=== PATIENT | male | born 1950 | race Caucasian/White ===

== ENCOUNTER 2021-04-05 12:47 | Outpatient (CLI) | payer MEDICARE ==
[2021-04-05 15:11] LABS: #Basophils 0.1 10x3/uL (0.0-0.2); #Monocytes 0.8 10x3/uL (0.0-1.1); #Neutrophils 7.2 10x3/uL (1.5-8.4); %Basophils 0.5 % (0.0-2.0); %Lymphocytes 12.1 % (18.0-47.0); %Monocytes 8.3 % (0.0-10.0); %Neutrophils 78.8 % (40.0-75.0); Hemoglobin 15.8 g/dL (13.5-17.5); Mean Corpuscular HGB CONC 33.2 g/dL (32.0-36.0); Mean Corpuscular Hemoglobin 29.8 pg (27.0-33.0); Mean Corpuscular Volume 89.6 fl (81.2-95.1); Mean Platelet Volume 11.4 fl (7.4-10.4); Platelet Count 245 10x3/uL (150-450); RBC Distribution Width 13.7 % (11.5-14.5); Red Blood Cell (RBC) Count 5.31 10x6/uL (4.32-5.72); White Blood Cell (WBC) Count 9.2 10x3/uL (3.5-10.5)
[2021-04-05 15:35] LABS: ALT (SGPT) 14 U/L (8-55); AST (SGOT) 12 U/L (5-34); Albumin 4.5 g/dL (3.4-4.8); Alkaline Phosphatase 50 U/L (40-110); Anion Gap 16 mmol/L (10-20); BUN (Urea Nitrogen) 29 mg/dL (8.4-25.7); Bilirubin, Direct 0.2 mg/dL (0.1-0.3); Bilirubin, Total 0.4 mg/dL (0.2-1.2); Calc. Creatinine Clearance 0 mL/min (70-130); Calcium 9.6 mg/dL (7.8-10.44); Carbon Dioxide 25 mmol/L (23-31); Chloride 105 mmol/L (98-107); Globulin 2.7 g/dL (2.4-3.5); Glucose 290 mg/dL (80-115); Potassium 5.1 mmol/L (3.5-5.1); Protein, Total 7.2 g/dL (5.8-8.1); Sodium 141 mmol/L (136-145)
[2021-04-05 22:22] LABS: SARS-CoV-2 PCR by NAA Not Detected (NotDetected)
== END 2021-04-05 12:48 | disposition home or self-care (01) ==
LOC: LABBT 12:47
PROVIDERS: ATTEND Surgery
DX: Z01.812 Encounter for preprocedural laboratory examination (principal); Z20.822 Contact with and (suspected) exposure to COVID-19
CPT/HCPCS: 80053; 80076; 85025; U0003; U0005

== ENCOUNTER 2021-04-06 10:05 | Day surgery (SDC) | payer MEDICARE ==
[2021-04-05 14:04] VITALS: BMI 25.9
[2021-04-06] MEDS ORDERED: Lidocaine 1% w/Epinephrine 1:100K 20 ML VIAL ONE (11:44)
[2021-04-06] MEDS ORDERED: Bupivacaine 0.25% 10 ML VIAL ONE (11:44)
[2021-04-06] MEDS ORDERED: cefOXitin Sodium/Dextrose 2 GM/50 ML BAG ONE (11:47)
[2021-04-06] MEDS ORDERED: Fentanyl 100 MCG/2 ML VIAL ONE (11:47)
[2021-04-06] MEDS ORDERED: Glycopyrrolate 0.2 MG/ML 5 ML SYRINGE ONE (12:14)
[2021-04-06] MEDS ORDERED: PROPOFOL 200 MG/20 ML VIAL ONE (12:14)
[2021-04-06] MEDS ORDERED: Ondansetron PF 4 MG/2 ML Vial ONE (12:14)
[2021-04-06] MEDS ORDERED: Lidocaine 1% PF 5 ML VIAL ONE (12:14)
[2021-04-06] MEDS ORDERED: Labetalol HCl 100 MG/20 ML VIAL ONE (12:14)
[2021-04-06] MEDS ORDERED: Rocuronium Bromide 10 MG/ML (10ML VIAL) ONE (12:14)
[2021-04-06] MEDS ORDERED: hydrALAZINE 20 MG/ML VIAL ONE (12:51)
[2021-04-06] MEDS ORDERED: Phenylephrine 10 MG/ML VIAL ONE ×2 (13:20→14:05)
[2021-04-06] MEDS ORDERED: Ketorolac Tromethamine 30 MG/ML VIAL ONE (13:23)
[2021-04-06] MEDS ORDERED: Calcium Chloride 1 GM/10 ML Abboject SYRINGE ONE (13:24)
[2021-04-06] MEDS ORDERED: ePHEDrine Sulfate 50 MG/10 ML VIAL ONE (13:26)
[2021-04-06] MEDS ORDERED: Nitroglycerin 2% Ointment 1 INCH/1 GM Packet ONE (13:27)
[2021-04-06] MEDS ORDERED: EPINEPHrine 1 MG/10 ML Abboject SYRINGE ONE ×2 (13:28→13:44)
[2021-04-06] MEDS ORDERED: Sodium Chloride 0.9% 100 ML ONE (13:33)
[2021-04-06] MEDS ORDERED: Succinylcholine 200 MG/10 ml SYRINGE FS ONE (13:33)
[2021-04-06] MEDS ORDERED: Norepinephrine 4 MG/4 ML VIAL ONE (13:34)
[2021-04-06] MEDS ORDERED: Ipratropium Bromide 2.5 ml Neb ONE (13:35)
[2021-04-06] MEDS ORDERED: Sodium Chloride 0.9% 10 ML ONE ×4 (13:36→13:54)
[2021-04-06] MEDS ORDERED: Midazolam HCl 2 mg/2 ml Vial ONE (13:39)
[2021-04-06] MEDS ORDERED: Sodium Bicarb 50 MEQ/50 ML Abboject 8.4% SYRINGE ONE (13:44)
[2021-04-06] MEDS ORDERED: EPINEPHrine 1 MG/ML AMP ONE (14:05)
[2021-04-06 14:06] LABS: Analyzer IN Cardio OR
[2021-04-06 14:07] LABS: Actual Bicarbonate (HCO3v) 21 mEq/L (22-28); Base Excess -6.5 mEq/L (-2.0 to +3.0); Calcium, Ionized (venous) 1.97 mmol/L (1.16-1.32); Chloride (VBG) 105 mmol/L (98-106); Hemoglobin (Hb) 13.8 g/dL (12.6-17.4); Potassium (VBG) 3.68 mmol/L (3.70-5.30); Sodium 137.3 mmol/L (133-146); pH (venous) 7.23 (7.32-7.43)
[2021-04-06 14:25] LABS: Actual Bicarbonate (HCO3a) 15.4 mEq/L (22-28); Base Excess (BEa) -12.6 mEq/L (-2.0 to +3.0); Calcium, Ionized (arterial) 1.26 mmol/L (1.12-1.30); Carboxyhemoglobin (COHb) 1.7 gm% (0.0-3.0); Hemoglobin (Hb) 14.8 g/dL (14.0-18.0); O2 Tension (PaO2), arterial 90.8 mmHg (> 80.0); Potassium - ABG Lab 3.96 mmol/L (3.70-5.30)
[2021-04-06 14:28] LABS: Puncture Site Arterial Line; pH, Arterial 7.17 (7.35-7.45)
== END 2021-04-06 14:48 | disposition expired ==
LOC: SDC 10:05
PROVIDERS: ATTEND Surgery
PROC: 0FT44ZZ Resection of Gallbladder, Percutaneous Endoscopic Approach (ICD-10-PCS; principal; 2021-04-06)
DX: K81.1 Chronic cholecystitis (principal); K82.8 Other specified diseases of gallbladder; R00.1 Bradycardia, unspecified; E78.00 Pure hypercholesterolemia, unspecified; E11.51 Type 2 diabetes mellitus with diabetic peripheral angiopathy without gangrene; I11.9 Hypertensive heart disease without heart failure; F17.200 Nicotine dependence, unspecified, uncomplicated; I45.10 Unspecified right bundle-branch block; I95.9 Hypotension, unspecified; Z79.82 Long term (current) use of aspirin; Z79.84 Long term (current) use of oral hypoglycemic drugs; Z79.899 Other long term (current) drug therapy; Z88.8 Allergy status to other drugs, medicaments and biological substances; Z95.1 Presence of aortocoronary bypass graft; Z91.19 Patient's noncompliance with other medical treatment and regimen
CPT/HCPCS: 47562; 71045; 82805 ×2; 82962; 93005; 93306; 94002; C1713; 36416; 88304; 93010; J0171; J0360; J0694; J1642; J1885; J2250; J2370; J2405; J2704; J3010; S0020